=== PATIENT | male | born 1970 | race Caucasian/White ===

== ENCOUNTER 2017-11-27 17:05 | Emergency (ER) | payer OTHER ==
[~2017-11-27] VITALS: Ht 182.9 cm; Wt 101.0 kg
[2017-11-27] MEDS ORDERED: NORCO 5/3251 TABLET PO (19:47)
[2017-11-27] MEDS ORDERED: PERCOCET 5/31 TABLET PO (19:57)
[2017-11-27 20:06] VITALS: BP 158/100
== END 2017-11-27 20:07 | disposition home or self-care (01) ==
LOC: RME 17:05 → EME 17:05 → RME 20:07
DX: S92.312A Displaced fracture of first metatarsal bone, left foot, initial encounter for closed fracture (principal); W18.40XA Slipping, tripping and stumbling without falling, unspecified, initial encounter; M21.379 Foot drop, unspecified foot; I10 Essential (primary) hypertension
CPT/HCPCS: 73610; 73630; 99281; 99284